=== PATIENT | male | born 1960 | race Two or more races ===

== ENCOUNTER 2021-09-06 22:20 | Emergency (ER) | payer SELFPAY ==
[~2021-09-06] VITALS: Ht 172.7 cm; Wt 74.8 kg
--- NOTE | 2021-09-06 22:30 | NUR ---
PT BIBRA C/O FACEPAIN S/P GLF 3 DAYS AGO. TOLERATING R/A WELL WITH NO SOB. CONNECTED PT TO POX AND MONITOR. SAFETY MEASURES IN PLACE.
[2021-09-06] MEDS ORDERED: IBUPROFEN 400 MG TABLET PO ONE (23:00)
[2021-09-06] MEDS ORDERED: TDAP [DIPH/PERTUSSIS/TET] 0.5 ML VIAL IM ONE ×2 (23:00→23:10)
[2021-09-06] MEDS ORDERED: IBUPROFEN 400 MG TABLET ONE (23:09)
--- NOTE | 2021-09-06 23:12 | NUR ---
EXECUTIVE LEGAL SECRETARY AT PT'S BEDSIDE
--- NOTE | 2021-09-06 23:19 | NUR ---
PT TAKEN TO CT VIA BERNARDO
--- NOTE | 2021-09-07 01:59 | NUR ---
Patient discharged to home in stable condition. Written and verbal after care instructions given. Patient verbalizes understanding of instruction.
[2021-09-07 02:00] VITALS: BP 122/77
== END 2021-09-07 02:00 | disposition home or self-care (01) ==
LOC: ER 22:22
DX: S00.83XA Contusion of other part of head, initial encounter (principal); R07.89 Other chest pain; I10 Essential (primary) hypertension; E11.9 Type 2 diabetes mellitus without complications; Z59.00 Homelessness unspecified; W18.39XA Other fall on same level, initial encounter; Y93.89 Activity, other specified; Y92.89 Other specified places as the place of occurrence of the external cause; Y99.8 Other external cause status
CPT/HCPCS: 70450-TC; 70486-TC; 71111-TC; 90715